=== PATIENT | female | born 1965 | race Caucasian/White ===

== ENCOUNTER 2020-06-11 11:41 | Emergency (ER) | payer OTHER, MEDICAID ==
[~2020-06-11] VITALS: Ht 172.7 cm; Wt 64.9 kg
[~2020-06-11 11:41] MED LIST: ACETAMINOPHEN-1 EAC1 PO; ACETAMINOPHEN325 M1 PO; ACYCLOVIR 800800 MG PO; AMOXICILLIN/POTASSIU PO; AMOXICILLIN500 M1 PO; AZITHROMYCIN 2250 MG PO; BACTRIM DS TAB1 EACH PO; BACTROBAN CREAM30 G1 TOP; BACTROBAN NASAL1 GM NASAL; BUPROPION; CHERATUSSIN AC118 ML PO; CLEOCIN HCL150 MG PO; CLEOCIN HCL300 MG PO; CYMBALTA60 MG PO; DOXYCYCLINE 10100 MG PO; IBUPROFEN; KEFLEX250 MG PO; KEFLEX500 MG PO; NOHOMEMEDICATIONS; NORCO 5-325 TA1 EACH PO; PROZAC; RIFAMPIN 300 M300 M1 NG; TRAMADOL 50 MG50 MG PO; [UNRECOGNIZED DRUG - REMARK]
[2020-06-11] MEDS ORDERED: PROAIR HFA8.5 GM INH (11:53)
[2020-06-11] MEDS ORDERED: BACTRIM DS TAB1 EACH PO (11:53)
[2020-06-11] MEDS ORDERED: CLINDAMYCIN HC150 MG PO (13:53)
[2020-06-11] MEDS ORDERED: MUPIROCIN1 GM TOP (13:53)
[2020-06-11 15:00] VITALS: BP 89/49
== END 2020-06-11 15:01 | disposition home or self-care (01) ==
LOC: M.ERS 11:41
DX: L03.115 Cellulitis of right lower limb (principal); M41.9 Scoliosis, unspecified; F17.210 Nicotine dependence, cigarettes, uncomplicated; Z98.51 Tubal ligation status; Z86.14 Personal history of Methicillin resistant Staphylococcus aureus infection